=== PATIENT | female | born 1950 | race Caucasian/White ===

== ENCOUNTER → 2023-08-20 11:02 | Outpatient (CLI) | payer MEDICARE, OTHER, SELFPAY ==
--- NOTE | 2023-08-20 11:04 | DI.MRI.S_ITS ---
PROCEDURE: MR FOOT RT WO CON INDICATIONS: HALLUX RIGIDUS / RIGHT GREAT TOE FIRST MTP JOINT TECHNIQUE: Multiphasic, multisequence MRI of the forefoot was performed, without intravenous contrast administration. COMPARISON: [facility], CR, XR FOOT 3 VIEWS WEIGHT BEARING BILATERAL, 04/08/2022, 13:41. FINDINGS: Image quality: Excellent. Bones and joints: No bone marrow contusions or metatarsal stress fractures. Mild hallux valgus. Moderate to severe degenerative changes are seen at the 1st metatarsophalangeal joint with full thickness cartilage loss and somewhat prominent surrounding osseous edema. No intraosseous lesions. Soft tissues: The visualized plantar foot muscles demonstrate normal signal and bulk. Visualized flexor and extensor tendons appear intact, without tenosynovitis. The distal insertions of the peroneus brevis and longus tendons appear intact. The principal Lisfranc ligament appears intact. No soft tissue ganglion cysts or bursal fluid collections. Sagittal images demonstrate no evidence for plantar plate tears. 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 Mild hallux valgus. Approved by: Preston Bowser M.D. on 08/21/2023 at 13:23
== END ==
PROVIDERS: PCP Internal Medicine; Referring Provider Orthopaedic Surgery Foot and Ankle Surgery; Visit Provider Orthopaedic Surgery Foot and Ankle Surgery
DX: M20.21 Hallux rigidus, right foot (principal); M20.11 Hallux valgus (acquired), right foot; M19.071 Primary osteoarthritis, right ankle and foot
CPT/HCPCS: 73718

== ENCOUNTER → 2025-02-23 12:47 | Outpatient (CLI) | payer MEDICARE, OTHER, SELFPAY | LOC: PHYS 12:49 | PROVIDERS: Family Provider Internal Medicine; PCP Internal Medicine; Referring Provider Orthopaedic Surgery; Visit Provider Orthopaedic Surgery | DX: M77.11 Lateral epicondylitis, right elbow (principal); R29.898 Other symptoms and signs involving the musculoskeletal system | CPT/HCPCS: 95886; 95910 ==